=== PATIENT | male | born 1940 | race Caucasian/White ===

== ENCOUNTER 2022-12-24 11:16 | Emergency (ER) | payer MEDICARE, SELFPAY ==
[2022-12-24 11:28] VITALS: BP 158/78; PULSE 84; RESP 16; TEMP 36.5; O2SAT 96; BMI 19.1
--- NOTE | 2022-12-24 11:36 | US_ITS ---
The [address] [address] Patient Name: RAE MEREDITH MRN: [id number] date: 1940 Sex: M Assigned Patient Location: ER Current Patient Location: ER Accession/Order Number: [id number] Exam Date: 12/24/2022 11:40 Report Date: 12/24/2022 12:16 At the request of: GUI MACK Procedure: US venous doppler LE LT Ultrasound venous duplex scan left lower extremity CLINICAL: Left lower extremity swelling for one month TECHNIQUE: Lemus-scale, color-flow, and Spectral Doppler examination of the left lower extremity were performed with and without provocative maneuvers. FINDINGS: Sonographic examination of the left lower extremity deep venous system to include the common femoral, superficial femoral and popliteal veins, demonstrates normal compressibility, color-flow, respiratory variation, and augmentation. The origin and proximal segment of the greater saphenous vein also demonstrates normal compression and color-flow. There is normal color-flow in the peroneal, posterior tibial, and anterior tibial veins. There is edema in the soft tissues of the calf and ankle. US/US venous doppler LE LT IMPRESSION: No deep venous thrombosis of the left lower extremity. Electronically authenticated by: MARICEL AKINS Date: 12/24/2022 12:16
--- NOTE | 2022-12-24 11:38 | ED_ITS ---
HPI - General Adult General Chief complaint: Extremity Problem, Nontraumatic Stated complaint: LOWER EXTREMITY SWELLING LEFT FOOT Time Seen by Provider: 12/24/22 11:22 Source: patient Limitations: no limitations History of Present Illness HPI narrative: patient developed swelling of the left foot, ankle and lower leg about a week ago and it has slowly worsened. No pain or redness - he has normal ROM and is able to walk/bear weight without pain or difficulty. Sensation is intact. He only takes herbs and supplements - takes no meds daily. [facility] but he has not seen a physician in years. Related Data Allergies Allergy/AdvReac Type Severity Reaction Status Date / Time No Known Drug Allergies Allergy Verified 12/24/22 11:28 Exam Narrative Exam Narrative: Nurses notes and vital signs reviewed and patient is not hypoxic. afebrile General: Well-appearing and in no apparent distress. Skin: Warm, dry, no pallor noted. No rash. Head: Normocephalic, atraumatic. Eye: Pupils are equal, round and EOMI. No scleral icterus. Cardiovascular: Regular Rate and Rhythm without murmur, gallop or rub. Respiratory: No accessory muscle use or respiratory distress. Lungs are clear to auscultation, no wheezing, rales or rhonchi Musculoskeletal: normal ROM, no calf or popliteal tenderness, 1+ lower extremity edema/swelling from mid left lower leg through to the end of the left foot. Neurological: A&O x4. No cranial nerve dysfunction observed. No truncal ataxia. Moves all extremities. Sensation intact. Psychiatric: Cooperative and interactive. Normal mood and affect. Constitutional Vital Signs, click to edit/add: Last Vital Signs Temp 97.7 F 12/24/22 11:28 Pulse 84 12/24/22 11:28 Resp 16 12/24/22 11:28 BP 158/78 H 12/24/22 11:28 Pulse Ox 96 12/24/22 11:28 O2 Del Method Room Air 12/24/22 11:28 Course Vital Signs Vital signs: Vital Signs Temperature 97.7 F 12/24/22 11:28 Pulse Rate 84 12/24/22 11:28 Respiratory Rate 16 12/24/22 11:28 Blood Pressure 158/78 H 12/24/22 11:28 Pulse Oximetry 96 12/24/22 11:28 Oxygen Delivery Method Room Air 12/24/22 11:28 Temperature 97.7 F 12/24/22 11:28 Pulse Rate 84 12/24/22 11:28 Respiratory Rate 16 12/24/22 11:28 Blood Pressure 158/78 H 12/24/22 11:28 Pulse Oximetry 96 12/24/22 11:28 Oxygen Delivery Method Room Air 12/24/22 11:28 Medical Decision Making MDM Narrative Medical decision making narrative: WBC normal and normal renal function. ESR elevated but CRP and uric acid ne gative. US negative for DVT. XRays negative. Nothing to account for the patient's unilateral left LE swelling. Patient discharged home with instructions to keep leg elevated while inactive - recommend PCP follow up at the [facility]. Lab Data Lab results reviewed: Yes I reviewed the patient's lab results Labs: Lab Results 12/24/22 Range/Units 12:05 WBC 5.9 (4.0-11.0) 10^3/uL RBC 3.82 L (4.70-6.10) 10^6/uL Hgb 11.9 L (14.0-18.0) g/dL Hct 36.0 L (42.0-54.0) % MCV 94.2 H (80.0-94.0) fL MCH 31.2 (25.9-34.0) pg MCHC 33.1 (29.9-35.2) g/dL RDW 13.0 (11.0-15.0) % Plt Count 313 (150-450) 10^3/uL MPV 9.1 L (9.5-13.5) fL Neut % (Auto) 70.0 (43.0-75.0) % Lymph % (Auto) 13.9 L (20.5-60.0) % [place] % (Auto) 9.7 (1.7-12.0) % Eos % (Auto) 5.3 (0.9-7.0) % Baso % (Auto) 0.8 (0.2-2.0) % Neut # (Auto) 4.1 (1.4-6.5) 10^3/uL Lymph # (Auto) 0.8 L (1.2-3.8) 10^3/uL [place] # (Auto) 0.6 (0.3-0.8) 10^3/uL Eos # (Auto) 0.3 (0.0-0.7) 10^3/uL Baso # (Auto) 0.1 (0.0-0.1) 10^3/uL Abs Immat Gran (auto) 0.02 (0.00-0.03) 10^3/uL Imm/Tot Granulo (auto) 0.3 (0.0-0.5) % ESR 45 H (<=20) mm/hr Sodium 141 (136-145) mmol/L Potassium 4.2 (3.5-5.1) mmol/L Chloride 106 (98-107) mmol/L Carbon Dioxide 28.6 (21.0-32.0) mmol/L Anion Gap 10.6 BUN 17.0 (7.0-18.0) mg/dL Creatinine 0.97 (0.70-1.30) mg/dL Est GFR ( Amer) >60 (>=60) Est GFR (Non-Af Amer) >60 (>=60) BUN/Creatinine Ratio 17.5 Glucose 99 (74-106) mg/dL Uric Acid 4.9 (3.5-7.2) mg/dL Calcium 8.3 L (8.5-10.1) mg/dL C-Reactive Protein <0.2 (<=1.0) mg/dL Imaging Data US left LE: Radiologist's impression: Patient Name: RAE MEREDITH MRN: [id number] date: 1940 Sex: M Assigned Patient Location: ER Current Patient Location: ER Accession/Order Number: [id number] Exam Date: 12/24/2022 11:40 Report Date: 12/24/2022 12:16 At the request of: GUI MACK Procedure: US venous doppler LE LT Ultrasound venous duplex scan left lower extremity CLINICAL: Left lower extremity swelling for one month TECHNIQUE: Lemus-scale, color-flow, and Spectral Doppler examination of the left lower extremity were performed with and without provocative maneuvers. FINDINGS: Sonographic examination of the left lower extremity deep venous system to include the common femoral, superficial femoral and popliteal veins, demonstrates normal compressibility, color-flow, respiratory variation, and augmentation. The origin and proximal segment of the greater saphenous vein also demonstrates normal compression and color-flow. There is normal color-flow in the peroneal, posterior tibial, and anterior tibial veins. There is edema in the soft tissues of the calf and ankle. IMPRESSION: No deep venous thrombosis of the left lower extremity. Electronically authenticated by: MARICEL AKINS Date: 12/24/2022 12:16 xr foot: Radiologist's impression: Patient Name: RAE MEREDITH MRN: [id number] date: 1940 Sex: M Assigned Patient Location: ER Current Patient Location: ER Accession/Order Number: [id number] Exam Date: 12/24/2022 12:17 Report Date: 12/24/2022 13:00 At the request of: GUI MACK Procedure: XR foot LT min 3V EXAM: XR foot LT min 3V, XR ankle LT min 3V INDICATION: foot swelling. COMPARISON: None. TECHNIQUE: Left foot and ankle, 3 views FINDINGS: Left foot: No acute fracture or dislocation. The joint spaces are preserved. Diffuse soft tissue swelling. Left ankle: No acute fracture or dislocation. Intact ankle mortise. Diffuse soft tissue swelling. IMPRESSION: No acute osseous abnormality of the left foot or ankle. Electronically authenticated by: ANGEL KEENAN Date: 12/24/2022 13:00 Discharge Plan Discharge Chief Complaint: Extremity Problem, Nontraumatic Clinical Impression: Localized swelling of left lower extremity Patient Disposition: Home, Self-Care Time of Disposition Decision: 13:12 Instructions: Leg Edema (ED) Stand Alone Forms: Portal Instructions Referrals: Physician,Non-Staff, MD [Primary Care Provider] - 1 week
--- NOTE | 2022-12-24 12:07 | XR_ITS ---
The [address] [address] Patient Name: RAE MEREDITH MRN: [id number] date: 1940 Sex: M Assigned Patient Location: ER Current Patient Location: ER Accession/Order Number: [id number] Exam Date: 12/24/2022 12:17 Report Date: 12/24/2022 13:00 At the request of: GUI MACK Procedure: XR ankle LT min 3V EXAM: XR foot LT min 3V, XR ankle LT min 3V INDICATION: foot swelling. COMPARISON: None. TECHNIQUE: Left foot and ankle, 3 views FINDINGS: Left foot: No acute fracture or dislocation. The joint spaces are preserved. Diffuse soft tissue swelling. Left ankle: No acute fracture or dislocation. Intact ankle mortise. Diffuse soft tissue swelling. XR/XR ankle LT min 3V IMPRESSION: No acute osseous abnormality of the left foot or ankle. Electronically authenticated by: ANGEL KEENAN Date: 12/24/2022 13:00
--- NOTE | 2022-12-24 12:07 | XR_ITS ---
The [address] [address] Patient Name: RAE MEREDITH MRN: [id number] date: 1940 Sex: M Assigned Patient Location: ER Current Patient Location: ER Accession/Order Number: [id number] Exam Date: 12/24/2022 12:17 Report Date: 12/24/2022 13:00 At the request of: GUI MACK Procedure: XR foot LT min 3V EXAM: XR foot LT min 3V, XR ankle LT min 3V INDICATION: foot swelling. COMPARISON: None. TECHNIQUE: Left foot and ankle, 3 views FINDINGS: Left foot: No acute fracture or dislocation. The joint spaces are preserved. Diffuse soft tissue swelling. Left ankle: No acute fracture or dislocation. Intact ankle mortise. Diffuse soft tissue swelling. XR/XR foot LT min 3V IMPRESSION: No acute osseous abnormality of the left foot or ankle. Electronically authenticated by: ANGEL KEENAN Date: 12/24/2022 13:00
[2022-12-24 12:20] LABS: Basophils Absolute Auto 0.1 10^3/uL (0.0-0.1); Basophils Percent Auto 0.8 % (0.2-2.0); Eosinophils Absolute Auto 0.3 10^3/uL (0.0-0.7); Eosinophils Percent Auto 5.3 % (0.9-7.0); Hemoglobin 11.9 g/dL (14.0-18.0); Immature Granulocytes Abs Auto 0.02 10^3/uL (0.00-0.03); Immature Granulocytes Pct Auto 0.3 % (0.0-0.5); Lymphocytes Absolute Auto 0.8 10^3/uL (1.2-3.8); Lymphocytes Percent Auto 13.9 % (20.5-60.0); Mean Corpuscular HGB Conc 33.1 g/dL (29.9-35.2); Mean Corpuscular Hemoglobin 31.2 pg (25.9-34.0); Mean Corpuscular Volume 94.2 fL (80.0-94.0); Mean Platelet Volume 9.1 fL (9.5-13.5); Monocytes Absolute Auto 0.6 10^3/uL (0.3-0.8); Monocytes Percent Auto 9.7 % (1.7-12.0); Neutrophils Absolute Auto 4.1 10^3/uL (1.4-6.5); Platelet Count 313 10^3/uL (150-450); Red Blood Count 3.82 10^6/uL (4.70-6.10); White Blood Count 5.9 10^3/uL (4.0-11.0)
[2022-12-24 12:27] LABS: Erythrocyte Sedimentation Rate 45 mm/hr (<=20)
[2022-12-24 12:33] LABS: Uric Acid 4.9 mg/dL (3.5-7.2)
[2022-12-24 12:39] LABS: Anion Gap 10.6; BUN Creatinine Ratio 17.5; Calcium 8.3 mg/dL (8.5-10.1); Carbon Dioxide 28.6 mmol/L (21.0-32.0); Chloride 106 mmol/L (98-107); Estimated GFR (African America >60 (>=60); Estimated GFR (Non-African Ame >60 (>=60); Glucose 99 mg/dL (74-106); Potassium 4.2 mmol/L (3.5-5.1); Sodium 141 mmol/L (136-145)
[2022-12-24 12:40] LABS: C Reactive Protein <0.2 mg/dL (<=1.0)
== END 2022-12-24 13:16 | disposition home or self-care (01) ==
PROVIDERS: Emergency Provider Emergency Medicine
DX: M79.89 Other specified soft tissue disorders (principal)
CPT/HCPCS: 36415; 73610; 73630; 80048; 84550; 85025; 85652; 86140; 93971; 99285